=== PATIENT | female | born 1995 | race Caucasian/White ===

== ENCOUNTER 2017-01-30 23:05 | Emergency (ER) | payer OTHER ==
[2017-01-30 23:11] VITALS: RESP 18
--- NOTE | 2017-01-31 00:02 | EDPHY ---
H & P Time Seen by Provider: 01/30/17 23:33 HPI/ROS: CHIEF COMPLAINT: Pruritic rash HISTORY OF PRESENT ILLNESS: 21-year-old female presents to the emergency department with pruritic rash. Patient states that she developed eczema to the dorsal aspect of her hands back in August and was treated with steroid topical ointment. The rash resolved and then returned over last 1 month. She states over last 1 week she developed pruritic rash to her arms, chest, and legs. She denies any new soaps lotions or detergents. No fevers or chills. No recent travel. No headache or neck pain. No treatment at home. No chest pain or difficulty breathing. No dysphagia. No sore throat. REVIEW OF SYSTEMS: Constitutional: No fever, no chills. Eyes: No double or blurry vision. ENT: No sore throat. Respiratory: No cough, no shortness of breath. Cardiac: No chest pain. Gastrointestinal: No abdominal pain, vomiting or diarrhea. Genitourinary: No dysuria. Musculoskeletal: No neck or back pain. Skin: Pruritic rash as above. Neurological: No headache. Past Medical/Surgical History: Negative Social History: Single, works at a [employer]. Smoking Status: Never smoked Physical Exam: General Appearance: Alert, no distress. Afebrile. Nontoxic appearing. Eyes: Pupils equal and round. Extraocular motions are all intact. ENT: Mouth: Mucous membranes moist. Respiratory: No wheezing, rhonchi, or rales, lungs are clear to auscultation. Cardiovascular: Regular rate and rhythm. Gastrointestinal: Abdomen is soft and nontender, no masses, no rebound or guarding, bowel sounds normal. Neurological: Alert and oriented x 3, cranial nerves II through XII grossly intact Skin: The diffuse erythematous patches noted to the dorsal aspect of her right and left hand. No vesicles. There is also macular papular rash noted to bilateral arms, lateral aspect of both legs. No vesicles noted. Musculoskeletal: Nontender to palpate along the cervical, thoracic or lumbar spine. Neck is supple. Extremities: Full range of motion and no peripheral edema. Psychiatric: Patient is oriented X 3, there is no agitation. Constitutional: Initial Vital Signs Temperature (C) 36.4 C 01/30/17 23:08 Heart Rate 63 01/30/17 23:08 Respiratory Rate 18 01/30/17 23:08 Blood Pressure 116/62 01/30/17 23:08 O2 Delivery Mode Room Air Allergies/Adverse Reactions: No Known Allergies Allergy (Unverified 01/30/17 23:08) Home Medications: Medication Instructions Recorded Triamcinolone 0.1% [Triamcinolone 30 gm TP BID 7 Days cream 01/31/17 0.1% Cream (*)] predniSONE 60 mg PO DAILY 5 Days tab 01/31/17 Medical Decision Making ED Course/Re-evaluation: 21-year-old female presents to the emergency department with pruritic rash. The patient has a history of eczema that was treated with topical steroids that improved and then returned. Patient will be treated again with topical triamcinolone. She now has a pruritic rash the rest of her body over last 1 week. She will be treated with prednisone, Pepcid and Benadryl. She was encouraged to keep her scheduled follow-up appointment with her primary care provider next week and will likely require Dermatology referral. Patient has no respiratory distress. I do not think this patient needs admission. She is comfortable being discharged home. Differential Diagnosis: Including but not limited to contact dermatitis, eczema, varicella, cellulitis Departure - Departure Disposition: Home, Routine, Self-Care Clinical Impression: Pruritic rash Eczema Qualifiers: Eczema type: unspecified Qualified Code(s): L30.9 - Dermatitis, unspecified Condition: Good Instructions: Eczema (ED), Acute Rash (ED) Additional Instructions: Prednisone daily for 5 days. Benadryl 50 mg every 6-8 hours as needed for itching, cautioned drowsiness. Pepcid 20 mg daily for itching as directed. Try not to itch the area. For the eczema on her hands: Use Aquaphor as discussed. You may also use topical steroid for 1 week as directed. Return to the emergency department if you develop difficulty breathing, difficulty swallowing or if you feel worse in any way. Referrals: [facility] [Other] - 1-2 days without fail Prescriptions: predniSONE 60 mg PO DAILY 5 Days tab Triamcinolone 0.1% [Triamcinolone 0.1% Cream (*)] 30 gm TP BID 7 Days cream
[2017-01-31] MEDS ORDERED: FAMOTIDINE 20 MG TAB PO ONE (01:12)
[2017-01-31] MEDS ORDERED: predniSONE 20 MG TAB PO ONE (01:12)
[2017-01-31] MEDS ORDERED: diphenhydrAMINE 25 MG CAP PO ONE (01:12)
[2017-01-31 01:42] VITALS: BP 121/43; PULSE 56; TEMP 98.4; O2SAT 97
== END 2017-01-31 01:43 | disposition home or self-care (01) ==
DX: L30.9 Dermatitis, unspecified (principal)